=== PATIENT | female | born 1970 | race Caucasian/White ===

== ENCOUNTER 2022-06-28 10:48 | Outpatient (REF) | payer OTHER, SELFPAY ==
[2022-06-28 11:02] LABS: MANUAL DIFF FLAG NO
[2022-06-28 12:18] LABS: Basophils Percent Auto 0.5 % (0-2); Eosinophils Percent Auto 0.2 % (0-4); Hematocrit 44.4 % (37.0-47.0); Hemoglobin 14.7 g/dl (12.0-16.0); Imm Gran Abs Auto 0.02 X10*3/uL (0.00-0.03); Imm Gran Pct Auto 0.3 % (0.0-0.4); Lymphocytes Absolute Auto 1.7 X10*3/uL (1.2-4.9); Lymphocytes Percent Auto 26.3 % (20-40); Mean Corpuscular HGB Conc 33.1 g/dl (31.0-35.0); Mean Corpuscular Hemoglobin 30.1 pg (27.0-33.0); Mean Platelet Volume 10.1 fL (9.4-12.3); Monocytes Absolute Auto 0.5 X10*3/uL (0.1-1.2); Monocytes Percent Auto 7.6 % (2-11); Neutrophils Absolute Auto 4.3 x10*3/uL (2.0-8.3); Neutrophils Percent Auto 65.1 % (45-73); Platelet Count 288 X10*3/uL (160-400); Red Blood Count 4.88 X10*6/uL (4.20-5.50); Red Cell Distribution Width 13.4 % (11.0-16.0); White Blood Count 6.6 X10*3/uL (4.8-10.8)
[2022-06-28 13:01] LABS: Erythrocyte Sedimentation Rate 3 MM/HR (0-20)
[2022-06-28 13:21] LABS: Alanine Aminotransferase 7 U/L (0-31); Albumin Level 4.3 g/dL (3.5-5.0); Alkaline Phosphatase 113 U/L (39-117); Anion Gap 15 (12-20); Aspartate Amino Transferase 11 U/L (5-31); Bilirubin Direct 0.2 mg/dL (0.0-0.5); Bilirubin Total 0.6 mg/dL (0.0-1.0); Blood Urea Nitrogen 8 mg/dL (9-16); Calcium 9.9 mg/dL (8.4-10.2); Carbon Dioxide 28 mmol/L (22-29); Chloride 102 mmol/L (96-108); Estimated Glomerular Filt Rate > 60; Glucose Random 139 mg/dL (60-115); Lipase 43 U/L (8-78); Potassium 3.7 mmol/L (3.3-5.1); Sodium 141 mmol/L (135-145); Total Protein 6.9 g/dL (6.5-8.0)
[2022-06-28 13:30] LABS: Amylase 72 U/L (28-100)
== END 2022-06-28 10:49 | disposition home or self-care (01) ==
LOC: HO.LAB 10:48
PROVIDERS: PCP Family Medicine; Visit Provider Psychiatry & Neurology Neurology
DX: G35 Multiple sclerosis (principal)
CPT/HCPCS: 36415; 80048; 80076; 82150; 83690; 85025; 85652

== ENCOUNTER 2023-10-04 08:07 | Outpatient (REF) | payer OTHER, SELFPAY ==
--- NOTE | ~2023-10-04 | MR_ITS ---
EXAMINATION: MR BRAIN WITHOUT AND WITH CONTRAST CLINICAL INFORMATION: Multiple sclerosis. COMPARISON: Brain MRI dated 07/27/2022. TECHNIQUE: Multiplanar, multisequence MRI of the brain was obtained before and after the intravenous administration of 5 mL Gadavist. FINDINGS: Again noted are multiple periventricular, and to a lesser extent subcortical white matter lesions throughout both cerebral hemispheres. When compared with the 07/27/2022 brain MRI the number and distribution of lesions appears similar. Patchy T2 hyperintense foci within the mid brain are unchanged and may represent demyelinating lesions. No convincing cerebellar lesion is identified. There is no convincing enhancing lesion. Multiple periventricular lesions demonstrate decreased signal on T1-weighted images, consistent with chronicity. None of the lesions demonstrate abnormal restricted diffusion. Callosal volume appears mildly decreased. There is no area of abnormal restricted diffusion to indicate an acute/subacute cerebral or cerebellar infarction. There is no acute intracranial hemorrhage. There is no midline shift or mass effect. No extra-axial fluid collection. No hydrocephalus. There is mild to moderate global cerebral volume loss. The flow voids at the base of the brain are maintained. The orbits are symmetric and within normal limits. The paranasal sinuses are well aerated. There is a small inferior left mastoid air cell effusion. The cerebellar tonsils are normally positioned. There is prominent increased T1 signal throughout the clivus and sella, similar to the prior study. MR/MR head/brain wo/w con IMPRESSION: Again noted are multiple periventricular, and to a lesser extent subcortical white matter lesions throughout both cerebral hemispheres. When compared with the 07/27/2022 brain MRI the number and distribution of lesions appears similar. Patchy T2 hyperintense foci within the mid brain are unchanged and may represent demyelinating lesions. No convincing cerebellar lesion is identified. There is no convincing enhancing lesion. Multiple periventricular lesions demonstrate decreased signal on T1-weighted images, consistent with chronicity. None of the lesions demonstrate abnormal restricted diffusion. Callosal volume appears mildly decreased.
--- NOTE | ~2023-10-04 | MR_ITS ---
EXAMINATION: MR CERVICAL SPINE WITHOUT AND WITH CONTRAST CLINICAL INFORMATION: Multiple sclerosis. Bilateral arm numbness and pain. COMPARISON: MRI cervical spine dated 07/27/2022. TECHNIQUE: MRI of the cervical spine was obtained using routine sequences with and without contrast. Intravenous contrast: Gadavist 5 mL. FINDINGS: Cervical spinal alignment remains anatomic in the sagittal projection. The visualized vertebral bodies demonstrate preserved stature. Bone marrow signal intensity is within normal limits. There is mild narrowing of the posterior aspect of the C5-C6 intervertebral disc, similar to the prior examination. The paraspinal soft tissue is normal in appearance. The cervical flow voids are maintained. There is no pathologic spinal enhancement. The visualized spinal cord is normal in caliber. There is no convincing demyelinating lesion identified on either the axial or sagittal images throughout the cervical spine. At C4-C5 there is a left foraminal disc protrusion and bilateral uncovertebral joint hypertrophy resulting in mild right and moderate left foraminal stenosis. There is no spinal canal stenosis. At C5-C6 there is a moderate size circumferential disc osteophyte complex which effaces the ventral thecal sac and bilateral uncovertebral joint hypertrophy resulting in moderate bilateral foraminal narrowing and mild narrowing of the spinal canal. MR/MR cervical spine wo/w con IMPRESSION: The visualized spinal cord is normal in caliber. There is no convincing demyelinating lesion identified on either the axial or sagittal images throughout the cervical spine. At C4-C5 there is a left foraminal disc protrusion and bilateral uncovertebral joint hypertrophy resulting in mild right and moderate left foraminal stenosis. There is no spinal canal stenosis. At C5-C6 there is a moderate size circumferential disc osteophyte complex which effaces the ventral thecal sac and bilateral uncovertebral joint hypertrophy resulting in moderate bilateral foraminal narrowing and mild narrowing of the spinal canal.
[2023-10-04] MEDS: gadobutroL 7.5 ML VIAL IVPUSH (10:06)
== END 2023-10-04 08:08 | disposition home or self-care (01) ==
LOC: HO.MRI 08:07
PROVIDERS: PCP Family Medicine; Visit Provider Registered Nurse
DX: G35 Multiple sclerosis (principal)
CPT/HCPCS: 70553; 72156; A9585

== ENCOUNTER 2025-05-28 10:41 | Outpatient (AMB) | payer OTHER, SELFPAY ==
--- NOTE | 2025-05-28 10:47 | A.OFFVIS_ITS ---
Vital Signs 05/28/25 10:49 Height 5 ft 2 in Weight 114 lb BMI 20.8 Blood Pressure Location Lt brachial Pulse Oximetry (%) 96 Intake Visit Reasons: MS, MS Follow Up Marketing Operations Consultant Required: No Allergies natalizumab (From TYSABRI) Allergy (Unknown, Unverified 05/28/25 10:49) ANAPHYLAXIS HPI Comments Details: She has been doing okay. Her mother passed a few weeks ago from cancer. Some ongoing neck pain, did PT and doing home exercises. Occasional brain fog and word finding difficulty. Vision was about the same. No recent falls. Sleep was okay. She was trying to taper off clonazepam, down to twice a day and has been doing okay. Last Ocrevus 12/2024, due 06/2025, tolerating well. Feels off at times. Has neck pain especially by the end of the day. Head feels heavy and feels dizzy at times. Brain fog, trouble with word finding. Also has trouble following and comprehending conversations. Some blurred vision, no double vision. Few falls in the past. Lives alone, has VNA 3x/week. appetite. Still having some GI symptoms and poor appetite. Had fecogram in 04/2024 without findings. Has seen 3 different GIs in area. Stomach pain and has to have bowel movement within few minutes after eating. No difference with Flagyl. Mental fog, f orgetfulness. Had daily headaches. BUE numbness. Decreased strength and dropping objects. Itchy all over. Barium swallow showed gastroesophageal dysmotility and some reflux. 2021 MRI brain and C spine are stable with no new lesions. Eye exam with Ophthal. 20/30 and 20/40. Falling occasionally. Had previous left ON with good recovery. Naps daily. She had an anaphylactic reaction to the second T ysabri infusion on 10/01/18. She was diagnosed with multiple sclerosis by Dr. Rodriguez at [facility] in 2014 with symptoms of left optic neuritis for 2 months, multiple MRI lesions and being in a brain fog. She was initially treated with Copaxone which she discontinued a couple of years ago because she is saw Dr. Tania Cleveland who told her she didn't have MS and that she had Lyme disease. She had had multiple Lyme titers done in [facility] labs which were normal, but a sample was sent out on April 29, 2017 and the same sample was initially reported as negative and another one showed 4+ reactivity in 2 different brands and then she was encouraged to have another test called her for a T9 which was positive and she was told that she had Lyme disease and to stop her MS medications and put on massive doses of antibiotics including cephalosporin for over 18 months. She came for a second opinion as to whether she has Lyme disease or MS. She had developed some binocular diplopia and is using an eye patch over the left eye. She can see clearly out of either eye individually. She has anxiety and depression and is on multiple medications. [facility] Medical History (Updated 05/28/25 @ 11:04 by Geena Serrato CNP) Cervical disc disease Tension headache Depression Multiple sclerosis Review of Systems Const Denies chills, Denies daytime sleepiness, Denies difficulty sleeping, Denies fatigue, Denies fever(s), Denies frequent falls, Denies headache(s), Denies increased appetite, Denies poor appetite, Denies snoring, Denies weakness, Denies weight gain and Denies weight loss Eyes Denies loss of vision ENT Denies vertigo, Reports dizziness, Denies headache(s) and Reports neck pain Card Denies chest pain at rest, Denies chest pain with activity, Denies syncope, D enies leg edema, Denies palpitations, Denies dyspnea and Denies dyspnea on exertion Resp Denies cough, Denies dyspnea, Denies dyspnea on exertion and Denies snoring GI Denies abdominal pain, Denies constipation, Denies heartburn, Reports diarrhea and Reports nausea Denies urinary frequency, Denies urinary incontinence and Denies urinary urgency Musc Denies abnormal gait, Denies back pain, Denies myalgias, Denies arthralgias, Reports neck pain, Reports numbness and Reports tingling Neuro Denies abnormal gait, Denies vertigo, Reports dizziness, Denies syncope, Denies frequent falls, Denies headache(s), Denies lack of coordination, Denies loss of vision, Denies memory loss, Reports numbness, Denies Other visual disturbances, Denies restless legs, Denies seizure-like activity, Reports tingling, Denies paresthesias, Denies tremor(s) and Denies weakness Psych Reports anxiety, Reports depression, Denies auditory hallucinations, Denies memory loss and Denies visual hallucinations Endo Denies fatigue and Denies palpitations Physical Exam Vital Signs: Last Vital Signs Pulse Ox 96 05/28/25 10:49 BMI result Body Mass Index 20.8 Const Other: General Appearance:? normal, in no acute distress. Heart:? S1, S2 normal, no murmurs. Lungs:? clear anteriorly and posteriorly. Musculoskeletal:? normal. Extremities:? no edema. Psych:? alert, oriented, cognitive function intact, cooperative with exam. Neuro Other: Abnormal Neurological Findings:?No diplopia. No clear internuclear ophthalmoplegia or cranial nerve palsy. Mild evidence of a Harlan Yamilet pupil on left. Blurred disc margins on right. Left partial optic atrophy. VA OD 20/40, OS 20/100.? Mental Status: alert and oriented X 3. Normal attention, orientation, memory, and affect. Cranial Nerves: Pupils are equal, round, and reactive to light. External ocular muscles are intact. Visual casey are full, no ptosis. Face is symmetrical, no facial weakness or droop. Facial sensations are normal. Tongue protrudes in midline. Palate elevates symmetrically. Shoulder shrugging is normal Motor Examination: Normal muscle tone, bulk and strength. No atrophy or fasciculations. No drift of the extended upper extremities. DTR 2+. Plantars are flexor. Sensory Exam: Normal light touch, temperature, pinprick, vibration, and joint- position sensations. Rhomberg sign is absent. Coordination: No ataxia. No titubation. Gait Exam: Within normal limits. Cerebellar Signs: [id number] is okay. Extrapyramidal System: No tremor, rigidity with normal facial expressions. No bradykinesia. No bradyphrenia. Normal arm swing and posture. No propulsion or retropulsion. Speech: Normal. Results Reviewed Results Reviewed: 06/11/21 MRI brain and C spine shows no new lesions or change 07/25/2022 MRI brain and C spine are stable with no new lesions. 10/25/21 SPENSER MING- Bilateral anterior optic pathway delay. Unchanges since last SPENSER done 04/11. 10/09/23 MRI brain and C spine show no lesions in spinal cord and no new lesions in brain. C4-5 disc herniation and degen disc disease probably accounting for neck and upper back pain. 12/19/2024 MRI brain and C spine W&WO: 1. Supratentorial and infratentorial MS plaques are not significantly changed. No new lesions or enhancing lesions. 2. No new convincing cervical spinal cord signal abnormality. Probable subtle new nonenhancing small T2 bright lesion within the left posterior cord at T2. Assessment & Plan Assessment & Plan (1) Multiple sclerosis: Code(s): G35 - Multiple sclerosis Category: Medical Plan: Continue Ocrevus 600mg IV [id number], next due 06/2025. (2) Depression: Code(s): F32.A - Depression, unspecified Category: Medical Qualifiers: Depression Type: unspecified Qualified Code(s): F32.A - Depression, unspecified Plan . Coding Level of Care Code Est Pt Level 4 (87211) Diagnoses Multiple sclerosis G35 Depression, unspecified depression type F32.A Depression Type: unspecified
[2025-05-28 10:49] VITALS: O2SAT 96; BMI 20.8
--- OUTSIDE RECORDS SUMMARY | 2025-05-28 11:39 | XMS_ITS | Clinical Summary ---
Author Organization [facility] [address] [place] [address] [place] [phone] Phone Care Team Providers Care Clinical Partner Name Role Phone Grayson Cordova DO Primary Care Provider Allergies Active Allergy Reactions Criticality Noted Date Comments Natalizumab Anaphylaxis High 12/23/2024 Medications omeprazole (PriLOSEC) [address] capsule Take 1 capsule (20 mg total) by mouth 2 (two) times a day with meals. 08/20/20 22 Active ondansetron ODT (ZOFRAN-ODT) 4 mg disintegrating tablet Take 4 mg by mouth every 8 hours as needed. Active albuterol sulfate (ProAir RespiClick) 90 mcg/actuation aerosol powdr breath activated Inhale into the lungs. Active amLODIPine (NORVASC) 2.5 mg tablet Take 1 tablet (2.5 mg total) by mouth 1 (one) time each day. Active DULoxetine (CYMBALTA) [address] capsule Take 1 capsule (60 mg total) by mouth 1 (one) time each day. Active clonazePAM (KlonoPIN) 2 mg tablet Take 2 mg by mouth 2 times daily as needed. Active sodium chloride/NaHCO3/MARY l/peg (NULYTELY ORAL) Take by mouth. Active LORazepam (Ativan) 0.5 mg tablet 1 1/2 tab daily Active cyclobenzaprine (FLEXERIL) 10 mg tablet Take 1 tablet (10 mg total) by mouth at bedtime as needed. at bedtime 11/18/19 25 Active hydrOXYzine pamoate (VISTARIL) 25 mg capsule Take 1 capsule (25 mg total) by mouth. 11/01/19 25 Active levothyroxine (SYNTHROID, LEVOTHROID) 50 mcg tablet Take 1 tablet (50 mcg total) by mouth 1 (one) time each day. Active sertraline (ZOLOFT) 25 mg tablet Take 1 tablet (25 mg total) by mouth 1 (one) time each day. for 30 days 11/16/19 25 Active zoledronic acid (RECLAST) 5 mg/100 mL piggyback Infuse 100 mL (5 mg total) into a venous catheter 1 (one) time for 1 dose. 100 mL 11/24/19 25 Active Linzess 290 mcg capsuleIndications :Constipation, unspecified constipation type TAKE ONE CAPSULE BY MOUTH EVERY DAY 30 capsule 05/05/20 25 Active Linzess 290 mcg capsuleIndications :Constipation, unspecified constipation type TAKE ONE CAPSULE BY MOUTH EVERY DAY 30 capsule 5 10/29/19 25 025 Discontinued Active Problems Problem Noted Date Diagnosed Date Osteoporosis 11/23/2024 Depression 04/14/2008 Overview (10/30/2024): Ysabel Segundo Hypercholesteremia 04/14/2008 Tobacco use disorder 04/14/2008 Immunizations Name Administration Dates Next Due GoPro SARS-CoV-2 COVID-19, mRNA, LNP-S, preservative free 01/11/2021,12/19/2020 Td Tetanus diptheria (Tdvax) 7yo and older 09/23 Surgical History Surgery Date Site/Laterality Comments TUBAL LIGATION PROCEDURE: HISTORICAL TUBAL LIGATION CARPAL TUNNEL RELEASE PROCEDURE: HISTORICAL CARPAL TUNNEL REL; COMMENT: right TUBAL LIGATION PROCEDURE:TUBAL LIGATION CARPAL TUNNEL RELEASE PROCEDURE:CARPAL TUNNEL RELEASE Medical History Medical History Date Comments Hypercholesteremia 04/14/2008 DX:Hyperchole steremia Multiple sclerosis (CMS/HCC V24, CMS/HCC V28) DX:Multiple sclerosis (HCC) Family History Medical History Relation Name Comments Hyperlipidemia Father cad Hypertension Father Diabetes Mother Heart attack Paternal Grandfather Heart attack Uncle 1 at CABG ag e 50 Relation Name Status Comments Brother 1 Alive Brother 2 Alive Father Alive Maternal Grandfather Alive Maternal Grandmother dementi a Mother Alive Paternal Grandfather (Age 80s) C [place] Paternal Grandmother [place] Uncle 1 Uncle 2 Social History Tobacco Use Types Packs/Day Years Used Date Smoking Tobacco: Former Cigarettes Smokeless Tobacco: Never Alcohol Use Standard Drinks/Week Comments Not Currently 0 (1 standard drink = 0.6 oz pur e alcohol) Comments Unknown Sex and Gender Information Value Date Recorded Sex Assigned at Not on file Legal Sex Female 12:23 PM EST Gender Identity Female 11/23/2024 8:47 AM EST Sexual Orientation Not on file Obstetrics History Last Filed Vital Signs Vital Sign Reading Time Taken Comments Blood Pressure 140/89 12/23/2024 11:13 AM EDT Pulse 80 12/23/2024 11:13 AM EDT Temperature 36.8 C (98.3 F) 12/23/2024 11:13 AM EDT Respiratory Rate - - Oxygen Saturation 100% 12/23/2024 11:13 AM EDT Inhaled Oxygen Concentration - - Weight 58.8 kg (129 lb 9.6 oz) 12/23/2024 11:13 AM EDT Height 157.5 cm (5' 2 ) 11/23/2024 11:32 AM EST Body Mass Index 23.7 11/23/2024 11:32 AM EST Plan of Treatment Upcoming Encounters Date Type Department Care Team (Late st Contact Info) Description 11/23/2025 9:20 AM EST Office Visit Endocrinology - [place] [address] [place] [phone] Kelsey Klein PA [address] [place] [address] 12/23/2025 11:00 AM EDT Appointment [facility] [address] [place] [phone] Health Maintenance Due Date Last Done Comments Breast Cancer Screening 1971 Diabetes: Annual Foot Exam 1981 Diabetes: Annual Retina Eye Exam 1981 Hepatitis B Vaccines (1 of 3 - 19+ 3-dose series) 1990 Pneumococcal Vaccine: 50+ Years (1 of 2 - PCV) 1990 Cervical Cancer Screening: Pap Smear 1992 DTaP,Tdap,and Td Vaccines (2 - Td or Tdap) 09/23/2013 09/23/2003 Zoster Vaccines (1 of 2) 2021 Cholesterol Screening (Lipid Panel) 08/21/2022 HIV Screening 08/21/2022 Hepatitis C Screening 08/21/2022 Medicare Annual Wellness Visit 08/21/2022 Osteoporosis Screening (Bone Density Screening) 08/21/2022 Social Influencers of Health Screening 08/21/2022 Depression Screening 09/23/2024 Diabetes: Annual Urine Albumin-Creatinine Ratio (uACR) 11/26/2024 Diabetes: Blood Sugar Control Test (HGBA1C) 11/26/2024 COVID-19 Vaccine ( season) 2025 09/09/2021, 01/11/2021, 12/19/2020 Influenza Vaccine (#1) 2025 , 05/18/2020, 06/10/2018, Additional history exists Diabetes: Annual GFR (Glomerular Filtration Rate) 11/25/2025 11/25/2024, 09/10/2023 Hypertension/CHF/CAD Annual BMP Blood Test 11/25/2025 11/25/2024, 09/10/2023 Colorectal Cancer Screening: Colonoscopy 12/06/2030 12/06/2020 HIB Vaccines Aged Out No longer eligi ble based on patient's age to complete this topic HPV Vaccines Aged Out No longer eligi ble based on patient's age to complete this topic Hepatitis A Vaccines Aged Out No long er eligible based on patient's age to complete this topic IPV Vaccines Aged Out No longer eligi ble based on patient's age to complete this topic MMR Vaccines Aged Out No longer eligi ble based on patient's age to complete this topic Meningococcal ACWY Vaccine Aged Out N o longer eligible based on patient's age to complete this topic Meningococcal B Vaccine Aged Out No l onger eligible based on patient's age to complete this topic RSV Immunization Patients Under 20 months Aged Out No longer eligible based on patient's age to complete this topic Varicella Vaccines Aged Out No longer eligible based on patient's age to complete this topic Procedures Procedure Name Priority Date/Time Associated Diagnosis Comments BASIC METABOLIC PANEL Routine 11/25/2024 12:26 PM EST Osteoporosis, unspecified osteoporosis type, unspecified pathological fracture presence HM COLONOSCOPY Routine 12/06/2020 from Last 3 Months or Most Recently Relevant to Health Maintenance Results * (ABNORMAL) Basic metabolic panel (11/25/2024 12:26 PM EST) Sodium 140 133 - 145 mmol/L LAB CHEMISTRY METHOD 11/25/2024 7:02 PM [facility] Potassium 4.0 3.5 - 5.5 mmol/L LAB CHEMISTRY METHOD 11/25/2024 7:02 PM [facility] Chloride 105 96 - 110 mmol/L LAB CHEMISTRY METHOD 11/25/2024 7:02 PM [facility] CO2 30 21 - 32 mmol/L LAB CHEMISTRY METHOD 11/25/2024 7:02 PM [facility] Anion Gap 5 3 - 11 LAB CHEMISTRY METHOD 11/25/2024 7:02 PM [facility] Glucose 127(H) 70 - 100 mg/dL LAB CHEMISTRY METHOD 11/25/2024 7:02 PM [facility] BUN 13 5 - 25 mg/dL LAB CHEMISTRY METHOD 11/25/2024 7:02 PM [facility] Creatinine 0.78 0.50 - 1.10 mg/dL LAB CHEMISTRY METHOD 11/25/2024 7:02 PM [facility] eGFR 91 >=60 mL/min/1. 73m2 LAB CHEMISTRY METHOD 11/25/2024 7:02 PM [facility] Comment:Calculation based on the Chronic Kidney Disease Epidemiology Collaboration (CKD-EPI) equation refit without adjustment for race. BUN/Creatinine Ratio 16.7 LAB CHEMISTRY METHOD 11/25/2024 7:02 PM [facility] Calcium 9.8 8.5 - 10.5 mg/dL LAB CHEMISTRY METHOD 11/25/2024 7:02 PM [facility] Blood Venous blood specimen / Unknown Venipuncture / Unknown 11/25/2024 12:26 PM EST 11/25/2024 12:26 PM EST Kelsey HUA LAB BLOOD ORDERABLES Final Resul t [facility] [address] [place] [address], * Colonoscopy (12/06/2020) Colonoscopy no interpretation , abstracted Anatomical Region Laterality Modality Other Historical Provider MD HEALTH MAINTENANCE Final Result from Last 3 Months or Most Recently Relevant to Health Maintenance Insurance [facility] MEDICAID [place] - [place] [facility] MEDICARE Member Subscriber Plan / Payer (Ef fective 2019-Present) Name:LANIE LAZO Relation to Subscriber:Self Name:Lanie Lazo Payer ID:[id number] Group ID:[id number] Type:Not on file Address: [address] [place] [id number] Care Teams Clinical Partner Relationship Specialty Start Date End Date Grayson Cordova DO [address], [place] PCP - General 10/01/22
--- OUTSIDE RECORDS SUMMARY | 2025-05-28 11:39 | XMS_ITS | Clinical Summary ---
Author Organization [facility] Facility Address [address] [place] [id number] Care Team Providers Care Canal Structure Operator Name Role Phone Grayson Cordova DO Primary Care Provider [phone] Allergies Active Allergy Reactions Criticality Noted Date Comments Natalizumab Anaphylaxis High 04/18/2022 Medications amLODIPine-ator vastatin (CADUET) 10-10 MG per tablet Take 1 tablet by mouth 1 (one) time each day Active omeprazole (PriLOSEC) [address] capsule Take 10 mg by mouth 1 (one) time each day Do not crush or chew. Active Probiotic Product (PROBIOTIC-10 PO) Take by mouth Active clonazePAM (KlonoPIN) 0.5 MG tablet Take 0.5 mg by mouth in the morning and 0.5 mg in the evening. Active DULoxetine (CYMBALTA) [address] capsule Take 60 mg by mouth 1 (one) time each day Do not crush or chew. Active levothyroxine (SYNTHROID, LEVOTHROID) 50 MCG tablet Take 100 mcg by mouth 1 (one) time each day Active methylphenidate (DAYTRANA) 10 MG/9HR Place 1 patch on the skin 1 (one) time each day wear patch for 9 hours only each day Active Methylphenidate HCl (methylphenidat e ER) 54 MG 24 hr tablet Take 54 mg by mouth 1 (one) time each day in the morning Do not crush, chew, or split. Active Active Problems Problem Noted Date Diagnosed Date At high risk for fall 04/18/2022 Benign essential hypertension 04/18/2022 Chronic kidney disease stage 1 04/18/2022 Cobalamin deficiency 04/18/2022 Hua's thyroiditis 04/18/2022 Hyperlipidemia 04/18/2022 Proteinuria 04/18/2022 Type 2 diabetes mellitus 04/18/2022 Resolved Problems Problem Noted Date Diagnosed Date Resolved Date Chronic diarrhea 04/18/2022 04/18/2022 Irritable bowel syndrome 04/18/2022 Mild intermittent asthma 04/18/2022 Optic neuritis 04/18/2022 04/18/2022 Patent foramen ovale 04/18/2022 022 Multiple sclerosis 04/23/2019 Immunizations Immunization Administration Dates Next Due Influenza, Unspecified 06/09/2013 Social History Tobacco Use Types Packs/Day Years Used Date Smoking Tobacco: Every Day Smokeless Tobacco: Never Tobacco Cessation:Ready to Q uit: Not Asked; Counseling Given: No Alcohol Use Standard Drinks/Week Comments Never 0 (1 standard drink = 0.6 oz pur e alcohol) Comments Unknown Sex and Gender Information Value Date Recorded Sex Assigned at Not on file Legal Sex Female 5:25 PM EST Gender Identity Not on file Sexual Orientation Not on file Last Filed Vital Signs Vital Sign Reading Time Taken Comments Blood Pressure 117/70 04/19/2022 3:08 PM EDT Pulse 92 02/22/2022 3:43 PM EDT Temperature - - Respiratory Rate - - Oxygen Saturation - - Inhaled Oxygen Concentration - - Weight 52.6 kg (116 lb) 04/19/2022 3:08 PM EDT Height - - Body Mass Index - - Plan of Treatment Health Maintenance Due Date Last Done Comments Breast Cancer Screening 1971 Hepatitis B Vaccine (1 of 3 - 19+ 3-dose series) 07/14 Pneumococcal Vaccine: 50+ Years (1 of 2 - PCV) 990 Colorectal Cancer Screening: Annual FOBT 2020 Colorectal Cancer Screening: Colonoscopy 2020 Colorectal Cancer Screening: Sigmoidoscopy 2020 Diabetes: Hemoglobin A1C 01/09/2022 Diabetes: Ophthalmology Exam 01/09/2022 Diabetes: Pedal Pulse Checked 01/09/2022 Diabetes: Sensory Foot Exam 01/09/2022 Diabetes: Visual Foot Exam 01/09/2022 Influenza Vaccine (#1) 2025 06/09/2013 Insurance [facility] Care Teams Canal Structure Operator Relationship Specialty Start Date End Date Grayson Cordova DO [address] [place] [address] PCP - General Family Medicine 01/05/22
--- OUTSIDE RECORDS SUMMARY | 2025-05-28 11:39 | XMS_ITS | Clinical Summary ---
Author Organization [facility] Address [address] [place] [address] Care Team Providers Care Physical Education Instructor Name Role Phone Grayson Cordova MD Primary Care Provider [phone] Medications Medication Sig Dispensed Refills Start Date End Date Status Natalizumab (TYSABRI IV) Inject into the vein every 6 (six) months. 0 Active amLODIPine (NORVASC) tablet 2.5 mg Take 1 tablet (2.5 mg total) by mouth daily. 0 Active levothyroxine (SYNTHROID) tablet 50 mcg Take 1 tablet (50 mcg total) by mouth every morning on an empty stomach. 0 Active DULoxetine (CYMBALTA) DR capsule 60 mg Take 1 capsule (60 mg total) by mouth daily. 0 Active methylphenidate (CONCERTA) 54 MG CR tablet Take 1 tablet (54 mg total) by mouth every morning. 0 Active clonazePAM (KlonoPIN) 1 MG tablet Take 1 tablet (1 mg total) by mouth 2 (two) times a day as needed for anxiety. 0 Active polyethylene glycol (MIRALAX) 17 g packet Take 17 g by mouth daily. 0 Active Active Problems Problem Noted Date Diagnosed Date Osteoporosis 09/27/2023 Social History Tobacco Use Types Packs/Day Years Used Date Smoking Tobacco: Former Cigarettes 0.5 Smokeless Tobacco: Never Tobacco Cessation:Counseling Given: Not Answered Alcohol Use Standard Drinks/Week Comments Not Currently 0 (1 standard drink = 0.6 oz pur e alcohol) Sex and Gender Information Value Date Recorded Sex Assigned at Female 10/01/2022 11:21 AM EST Gender Identity Not on file Sexual Orientation Not on file Job Start Date Occupation Industry Not on file Not on file Not on file Last Filed Vital Signs Vital Sign Reading Time Taken Comments Blood Pressure 132/83 10/16/2023 10:51 AM EST Pulse 102 10/16/2023 10:51 AM EST Temperature 36.6 C (97.8 F) 10/16/2023 10:51 AM EST Respiratory Rate 18 10/16/2023 10:51 AM EST Oxygen Saturation 100% 10/16/2023 10:51 AM EST Inhaled Oxygen Concentration - - Weight 49.4 kg (109 lb) 11/05/2022 9:53 AM EST Height 160 cm (5' 3 ) 11/05/2022 9:53 AM EST Body Mass Index 19.31 11/05/2022 9:53 AM EST Plan of Treatment Health Maintenance Due Date Last Done Comments Hepatitis B Vaccines (1 of 3 - 3-dose series) 1971 Hepatitis C Screening 1971 Depression Screening 1983 Preventative Health Evaluation 1989 DTap / Tdap / Td (1 - Tdap) 1990 Cervical Cancer Screening (Pap Smear) 1992 Colon Cancer Screening (Colonoscopy) 2016 Breast Cancer Screening (Mammogram) 2021 Shingrix-Zoster Vaccine (1 of 2) 2021 COVID-19 Vaccine (3 - season) 2025 01/11/2021, 12/19/2020 Influenza Vaccine (#1) 2025 , 05/18/2020, 06/10/2018, Additional history exists Pneumococcal Vaccine Aged Out No long er eligible based on patient's age to complete this topic RSV Ped < 20 months Aged Out No longe r eligible based on patient's age to complete this topic Care Teams Physical Education Instructor Relationship Specialty Start Date End Date Grayson Cordova MD [address] [place] [address] PCP - General Family Medicine 10/01/22
== END 2025-05-28 11:08 | disposition home or self-care (01) ==
LOC: HO.HSM 10:41
PROVIDERS: PCP Family Medicine; Visit Provider Registered Nurse
DX: G35 Multiple sclerosis (principal); F32.A Depression, unspecified
CPT/HCPCS: 99214

== ENCOUNTER → 2025-05-28 10:41 | Outpatient (BNVA) | payer OTHER, SELFPAY | PROVIDERS: PCP Family Medicine; Visit Provider Registered Nurse | DX: G35 Multiple sclerosis (principal); F32.A Depression, unspecified; F41.9 Anxiety disorder, unspecified | CPT/HCPCS: 99212 ==